=== PATIENT | male | born 1980 | race Two or more races ===

== ENCOUNTER 2020-10-19 09:38 | Emergency (ER) | payer MEDICAID, OTHER ==
[~2020-10-19] VITALS: Ht 177.8 cm; Wt 121.6 kg
[2020-10-19] MEDS ORDERED: IBUPROFEN 800 MG TAB PO ONE (11:45)
[2020-10-19 12:44] VITALS: BP 125/71
== END 2020-10-19 14:10 | disposition home or self-care (01) ==
LOC: ER 09:38
DX: R60.0 Localized edema (principal); F17.210 Nicotine dependence, cigarettes, uncomplicated
CPT/HCPCS: 73610; 93971

== ENCOUNTER 2020-12-14 06:18 | Emergency (ER) | payer MEDICAID ==
[~2020-12-14] VITALS: Ht 177.8 cm; Wt 129.3 kg
[2020-12-14 07:10] LABS: Basophils # (auto) 0 10 ^3/uL (0-0.2); Basophils % (auto) 0.4 % (0.0-2.0); Eosinophils # (auto) 0.1 10 ^3/uL (0-0.8); Eosinophils % (auto) 2.7 % (0.0-7.0); Hematocrit 36.6 % (41.0-53.0); Hemoglobin 12.4 g/dL (13.5-17.5); Lymphocytes # (auto) 1.6 10 ^3/uL (0.4-5.4); Lymphocytes % (auto) 32.5 % (10.0-50.0); Mean Corpuscular Hemoglobin 30.3 pg (28.0-32.0); Mean Corpuscular Hgb Conc. 33.8 g/dL (32.0-36.0); Mean Corpuscular Volume 89.7 fL (80.0-100.0); Monocytes # (auto) 0.4 10 ^3/uL (0-1.3); Monocytes % (auto) 8.4 % (0.0-12.0); Neutrophils # (auto) 2.7 10 ^3/uL (1.6-8.6); Nucleated Red Blood Cells % 0.1 %; Red Blood Cells 4.09 10^6/uL (4.5-5.90); Red Cell Distribution Width 15.6 % (11.8-14.3); White Blood Cell 4.8 10^3/uL (4.4-10.8)
[2020-12-14 07:54] LABS: Albumin 2.7 g/dL (3.4-5.0); Calcium 7.8 mg/dL (8.5-10.1); Potassium 3.9 mmol/L (3.5-5.1)
[2020-12-14 07:58] LABS: BUN/Creatinine Ratio 16.4; Bilirubin, Total 0.8 mg/dL (0.2-1.0); Total Protein 7.5 g/dL (6.4-8.2)
[2020-12-14] MEDS ORDERED: SODIUM CHLORIDE 0.9% 1,000 ML IV ONE (10:30)
[2020-12-14] MEDS ORDERED: FUROSEMIDE 40 MG/4 ML VIAL IV ONE (11:45)
[2020-12-14] MEDS ORDERED: SPIRONOLACTONE 25 MG TAB PO ONE (11:45)
[2020-12-14 12:41] LABS: Urine WBC None Seen /hpf (0 - 3)
[2020-12-14 13:05] LABS: Urine Bacteria NONE SEEN /hpf (None Seen); Urine Blood Negative /uL (Negative); Urine Specific Gravity 1.017 (1.001-1.035)
[2020-12-14 13:35] VITALS: BP 139/76
== END 2020-12-14 13:32 | disposition home or self-care (01) ==
LOC: ER 06:18
DX: R60.0 Localized edema (principal); I87.2 Venous insufficiency (chronic) (peripheral); R74.8 Abnormal levels of other serum enzymes; E46 Unspecified protein-calorie malnutrition; E66.9 Obesity, unspecified; F17.210 Nicotine dependence, cigarettes, uncomplicated; Z68.35 Body mass index [BMI] 35.0-35.9, adult
CPT/HCPCS: 36415; 71046; 80053; 81001; 83735; 83880; 84443; 85025; 85379; 93005; 96361; 96374; 99285; J1940; J7030

== ENCOUNTER 2021-09-28 07:30 | Emergency (ER) | payer MEDICAID ==
[~2021-09-28] VITALS: Ht 177.8 cm; Wt 124.7 kg
[2021-09-28 07:31] VITALS: BP 180/74
[2021-09-28] MEDS ORDERED: KETOROLAC TROMETH 60MG/2ML VIAL IM ONE (08:30)
[2021-09-28] MEDS ORDERED: IBUP800T27 PO (08:33)
[2021-09-28] MEDS ORDERED: METH750T22 PO (08:33)
== END 2021-09-28 08:42 | disposition home or self-care (01) ==
LOC: ER 07:30
DX: S29.012A Strain of muscle and tendon of back wall of thorax, initial encounter (principal); F17.210 Nicotine dependence, cigarettes, uncomplicated; X50.1XXA Overexertion from prolonged static or awkward postures, initial encounter; Y93.89 Activity, other specified; Y92.89 Other specified places as the place of occurrence of the external cause; Y99.8 Other external cause status
CPT/HCPCS: 96372; 99283; J1885

== ENCOUNTER 2024-03-05 15:28 | Emergency (ER) | payer MEDICAID, OTHER ==
[~2024-03-05] VITALS: Ht 177.8 cm; Wt 117.5 kg
[~2024-03-05 15:28] MED LIST: IBUP-1456 PO; METH-1182 PO
[2024-03-05 16:13] VITALS: BP 171/93; PULSE 91; RESP 16; TEMP 98.1; O2SAT 97
[2024-03-05] MEDS: KETOROLAC TROMETH 60MG/2ML VIAL IM ONE (16:20)
[2024-03-05] MEDS ORDERED: TRAM-626 PO (17:04)
== END 2024-03-05 17:36 | disposition home or self-care (01) ==
LOC: ER 15:28
DX: S82.142A Displaced bicondylar fracture of left tibia, initial encounter for closed fracture (principal); F17.210 Nicotine dependence, cigarettes, uncomplicated; W22.8XXA Striking against or struck by other objects, initial encounter; Y93.89 Activity, other specified; Y92.69 Other specified industrial and construction area as the place of occurrence of the external cause; Y99.8 Other external cause status
CPT/HCPCS: 29505; 73562; 96372; 99283; J1885

== ENCOUNTER 2025-03-16 14:42 | Emergency (ER) | payer MEDICAID, OTHER ==
[~2025-03-16] VITALS: Ht 177.8 cm; Wt 146.8 kg
[~2025-03-16 14:42] MED LIST changes: +TRAM-626 PO
--- NOTE | 2025-03-16 15:08 | ED.PDOC ---
History of Present Illness(SKN HPI Comments 44 y/o M, presents to the ED for CC of wound check. 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 Patient relays, that he believes that he may have a needle stick embedded into his right cubital fossa region, as he has developed two abscess appearing wounds which are swollen and erythematous. Patient denies any nausea, vomiting, fever, or chills. Chief Complaint: Wound Check Time Seen by MD: 15:00 Primary Care Provider: DR MCFARLANE History of Present Illness: Nurses Notes, Medications, Allergies Allergies: Coded Allergies: NO KNOWN ALLERGIES (Unverified , 10/19/20) Home Meds Active Scripts Tramadol HCl (Tramadol HCl) 50 Mg Tab, 50 MG PO TID, #24 TAB Prov:YISEL ALVAREZ 03/05/24 Methocarbamol (Methocarbamol) 750 Mg Tab, 750 MG PO QHSP PRN, #20 TAB Prov:YISEL ALVAREZ 09/28/21 Ibuprofen (Ibuprofen) 800 Mg Tab, 800 MG PO Q8HP PRN, #30 TAB Prov:YISEL ALVAREZ 09/28/21 Information Source: Patient Mode of Arrival: Ambulatory Severity: Moderate Timing: Days Duration: Since onset Prehospital treatment: None Location: Arm (right ) Developed: Other (swelling, erythema) Object: Needle Retained Foreign Body: Unknown Wound Type: Abscess Immunization Status of Animal: NA Tetanus: Unknown History of: None Associated Signs and Symptoms: Redness, Swelling Past Medical History PAST MEDICAL HISTORY: Denies Surgical History: Denies all surgeries Family History Family History: Reviewed,noncontributory to illness Social History Smoker: Cigarettes Alcohol: Denies ETOH Use Drugs: Denies Drug Use Lives In: Home Constitutional: denies: chills, diaphoresis, fatigue, fever, malaise, sweats, weakness, others EENTM: denies: blurred vision, double vision, ear bleeding, ear discharge, ear drainage, ear pain, ear ringing, eye pain, eye redness, hearing loss, mouth pain, mouth swelling, nasal discharge, nose bleeding, nose congestion, nose pain, photophobia, tearing, throat pain, throat swelling, voice changes, others Respiratory: denies: cough, hemoptysis, orthopnea, SOB at rest, shortness of breath, SOB with excertion, stridor, wheezing, others Cardiovascular: denies: chest pain, dizzy spells, diaphoresis, Dyspnea on ex ertion, edema, irregular heart beat, left arm pain, lightheadedness, palpitations, PND, syncope, others Gastrointestinal: denies: abdomen distended, abdominal pain, blood streaked bowels, constipated, diarrhea, dysphagia, difficulty swallowing, hematemesis, melena, nausea, poor appetite, poor fluid intake, rectal bleeding, rectal pain, vomiting, others Genitourinary: denies: burning, dysuria, flank pain, frequency, hematuria, incontinence, penile discharge, penile sore, pain, testicle pain, testicle swelling, urgency, others Neurological: denies: dizziness, fainting, headache, left sided numbness, left sided weakness, numbness, paresthesia, pre-existing deficit, right sided numbness, right sided weakness, seizure, speech problems, tingling, tremors, weakness, others Musculoskeletal: denies: back pain, gout, joint pain, joint swelling, muscle pain, muscle stiffness, neck pain, others Integumetry: denies: bruises, change in color, change in hair/nails, dryness, laceration, lesions, lumps, rash, wounds, others Allergic/Immunocompromised: denies: Difficulty Healing, Frequent Infections, Hives, Itching, others Hematologic/Lymphatic: denies: anemia, blood clots, easy bleeding, easy bruising, swollen glands, others Endocrine: denies: excessive hunger, excessive sweating, excessive thirst, excessive urination, flushing, intolerance to cold, intolerance to heat, unexplained weight gain, unexplained weight loss, others Psychiatric: denies: anxiety, bipolar disorder, depression, hopeless, panic disorder, schizophrenia, sleepless, suicidal, others All Other Systems: Reviewed and Negative Physical Exam General Appearance: No Apparent Distress, Normal HEENT: Normal ENT Inspection, Pharynx Normal Neck: Full Range of Motion, Non-Tender, Normal, Normal Inspection Respiratory: Chest Non-Tender, Lungs Clear, No Accessory Muscle Use, No Respira tory Distress, Normal Breath Sounds Cardiovascular: No Edema, No Murmur, No Gallop, Normal Peripheral Pulses, Regular Rate/Rhythm Breast Exam: Deferred Gastrointestinal: No Organomegaly, Non Tender, No Pulsatile Mass, Normal Bowel Sounds, Soft Genitalia: Deferred Pelvic: Deferred Rectal: Deferred Extremities: No calf tenderness, Normal capillary refill, Normal inspection, Normal range of motion, Non-tender, No pedal edema Musculoskeletal : Apperance: Normal Neurologic: Alert, linen sorter II-XII nml as Tested, No Motor Deficits, Normal Affect, Normal Mood, No Sensory Deficits Cerebellar Function: Normal Reflexes: Normal Skin: Dry, Normal Color, Other (4x2cm abscess presenting to the right cubital fossa, 2x2cm distal abscess presenting to the right cubital fossa) Lymphatic: No Adenopathy Was a procedure done? Was a procedure done?: No Differential Diagnosis (INTG) Differential Diagnosis: Cellulitis, Contusion Differential Diagnosis: Abscess, Atopic dermatitis, Gangrene Abscess: Abscess, Cellulitis, Erysipelas X-Ray, Labs, Meds, VS Vital Signs Date Time Temp Pulse Resp B/P (MAP) Pulse Ox O2 Delivery O2 Flow Rate FiO2 03/16/25 14:45 97.6 89 16 143/85 96 97.6 X-Ray, Labs, Meds, VS Comment Imaging was reviewed by this provider, there is no obvious pathological or acute disease process. Pending radiology review Labs were reviewed by this provider, no abnormalities Vital signs reviewed by this provider, clinically stable Time of 1ST Reevaluation: 15:30 Reevaluation 1ST: Unchanged Patient Education/Counseling: Diagnosis, Treatment, Need For Follow Up (Follow up in two days for wound recheck. Return to the emergency department if symptoms worsen.) Family Education/Counseling: No Family Present SEPSIS Sepsis Screen Date sepsis recognized/suspect: Mar 16, 2025 Time Sepsis recognized/suspect: 1449 Recent Procedure: No On Antibiotic Therapy: No Respiratory Rate >20: No Heart Rate >90: No Temp<36 C (96.8 F) or >38.3 C: No SBP <90 or MAP <65 mmHG: No New Acute Mental Status Change: No Is the patient on CPAP, BIPAP,: No Physician Orders R Elbow 3 View Xray (03/16/25 15:02) Vital Signs Date Time Temp Pulse Resp B/P (MAP) Pulse Ox O2 Delivery O2 Flow Rate FiO2 03/16/25 14:45 97.6 89 16 143/85 96 97.6 Departure 1 Departure Time of Disposition: 15:23 Impression: Primary Impression: Abscess Disposition: HOME / SELF CARE / HOMELESS Condition: Fair e-Prescriptions Ibuprofen Micronized (Ibuprofen) 800 Mg Tab 800 MG PO TID PRN, #40 TAB Prov: ABDIFATAH PLATT 03/16/25 Clindamycin Hcl (Clindamycin Hcl) 300 Mg Cap 1 CAP PO TID for 10 Days, #30 CAP Prov: ABDIFATAH PLATT 03/16/25 Discharged With: Self Critical Care Note Critical Care Time?: No Stability Stability form required: No Heart Score Heart Score: Heart Score Response (Comments) Value History N/A 0 EKG N/A 0 Age N/A 0 Risk Factors N/A 0 Troponin N/A 0 Total 0 I personally scribed for ABDIFATAH PLATTP ([email or web address]) on 03/16/25 at 15:08. Electronically submitted by Erica Molina ([email or web address]). I personally scribed for ABDIFATAH PLATTP ([email or web address]) on 03/16/25 at 15:16. Electronically submitted by Erica Molina ([email or web address]). ABDIFATAH PLATT Mar 16, 2025 15:08
[2025-03-16] MEDS: KETOROLAC TROMETH 30 MG/ML 1ML VIAL IM ONE (15:15)
[2025-03-16] MEDS: cefTRIAXone SOD 1,000 MG VL IM ONE (15:15)
[2025-03-16] MEDS ORDERED: IBUP-1455 PO (15:24)
[2025-03-16] MEDS ORDERED: CLIN1CAP70 PO (15:24)
--- NOTE | 2025-03-16 15:33 | DVH ---
XY R ELBOW 3 VIEW XRAY, INDICATION: fb in arm TECHNICAL DATA: Frontal, oblique and lateral views were obtained of the right elbow. COMPARISON: None FINDINGS: No fracture is identified. Joint spaces are maintained. Alignment at the joint is anatomic. 8 mm line ar density in the AC fossa could be a small foreign body. No joint effusion is demonstrated. IMPRESSION: 8 mm linear density in the AC fossa could be a small foreign body. No acute fracture or dislocation of the right elbow.
[2025-03-16 16:13] VITALS: BP 154/91; PULSE 82; RESP 17; TEMP 98; O2SAT 99
== END 2025-03-16 16:15 | disposition home or self-care (01) ==
LOC: ER 14:42
DX: L02.91 Cutaneous abscess, unspecified (principal); F17.210 Nicotine dependence, cigarettes, uncomplicated; Z79.899 Other long term (current) drug therapy
CPT/HCPCS: 73080